=== PATIENT | male | born 1970 | race Caucasian/White ===

== ENCOUNTER 2016-09-12 04:20 | Emergency (ER) | payer OTHER ==
[~2016-09-12] VITALS: Ht 175.3 cm; Wt 95.7 kg
[2016-09-12 04:28] VITALS: BP 115/70
--- NOTE | 2016-09-12 04:37 | NUR ---
TO ER BED 5
--- NOTE | 2016-09-12 04:38 | NUR ---
46 Y/O M W/CO R LOWER BACK PAIN, NAUSEA, VOMITITNG AND DIARRHEA. PT DENIES ANY ABD PAIN. PER PT HE HAD A SYNCOPE EPISODE X 1 YESTERDAY. DENIES ANY DIZZINESS AT THE MOMENT. ER MD MADE AWARE.
--- NOTE | 2016-09-12 05:29 | NUR ---
MOVED TO ER BED 4
[2016-09-12] MEDS ORDERED: NACL 0.9% 2,000 ML IV ONE (05:40)
[2016-09-12] MEDS ORDERED: ONDANSETRON 4 MG/2 ML VIAL IVP ONE (05:40)
[2016-09-12 06:09] LABS: BASOPHILS # (AUTO) 0.1 K/uL (0.00-0.22); BASOPHILS % (AUTO) 0.9 % (0.0-2.0); EOSINOPHILS # (AUTO) 0.1 K/uL (0-0.4); EOSINOPHILS % (AUTO) 1.1 % (0.0-4.0); HEMATOCRIT 48.4 % (36-52); HEMOGLOBIN 16.1 g/dL (12.0-18.0); LYMPHOCYTES # (AUTO) 0.8 K/uL (2.0-11.5); LYMPHOCYTES % (AUTO) 6.9 % (20.5-51.1); MEAN CORPUSCULAR HEMOGLOBIN 28 pg (27-31); MEAN CORPUSCULAR HGB CONC 33 g/dL (33-37); MEAN CORPUSCULAR VOLUME 83 fL (80-94); MONOCYTES # (AUTO) 0.5 K/uL (0.8-1.0); MONOCYTES % (AUTO) 4.5 % (1.7-9.3); NEUTROPHILS # (AUTO) 10.6 K/uL (1.8-7.7); PLATELET COUNT (AUTO) 195 K/uL (140-450); RED BLOOD CELL COUNT(AUTO) 5.81 MIL/uL (4.20-6.10); WHITE BLOOD COUNT (AUTO) 12.1 K/uL (4.8-10.8)
[2016-09-12 06:19] LABS: ANION GAP 12.5 (8-16); CALCIUM 8.9 mg/dL (8.5-10.1); CARBON DIOXIDE 26.3 mmol/L (21-32); POTASSIUM 3.8 mmol/L (3.5-5.1)
[2016-09-12 06:26] LABS: ALBUMIN 3.8 g/dL (3.4-5.0); TOTAL BILIRUBIN 0.7 mg/dL (0.0-1.0); TOTAL PROTEIN, SERUM 7.7 g/dL (6.4-8.2)
[2016-09-12 06:27] LABS: NEUTROPHILS % (AUTO) 86.6 % (42.2-75.2)
[2016-09-12 06:33] LABS: INR 1.1 (0.8-1.2); PROTHROMBIN TIME 10.8 secs (10.8-13.4)
[2016-09-12 06:34] LABS: PARTIAL THROMBOPLASTIN TIME 25.9 secs (22-35.6)
--- NOTE | 2016-09-12 07:05 | NUR ---
REPORT GIVEN TO KINDRA LINDSAY. PT STABLE, VSS, NO S/S OF DISTRESS NOTED.
[2016-09-12 07:25] VITALS: BP 111/62
--- NOTE | 2016-09-12 07:28 | NUR ---
Patient discharged with v/s stable. Written and verbal after care instructions given and explained. Patient alert, oriented and verbalized understanding of instructions. Ambulatory with steady gait. All questions addressed prior to discharge. ID band removed. Patient advised to follow up with PMD. Rx of Imodium A-D 2mg caplet, 1 to 2 tabs, TID as needed and Zofran 8mg tablet,1 tab, q8h PRN given. Patient educated on indication of medication including possible reaction and side effects. Opportunity to ask questions provided and answered.
== END 2016-09-12 07:28 | disposition home or self-care (01) ==
LOC: MED 04:20
DX: E86.0 Dehydration (principal); R19.7 Diarrhea, unspecified; M54.9 Dorsalgia, unspecified; R11.2 Nausea with vomiting, unspecified; R10.30 Lower abdominal pain, unspecified
CPT/HCPCS: 36415; 80053; 81002; 85025; 85610; 85730; 93005; 96361; 96374; 99285; J2405